=== PATIENT | male | born 1975 | race Caucasian/White ===

== ENCOUNTER 2022-11-05 13:34 | Emergency (ER) | payer MEDICAID, OTHER ==
[~2022-11-05] VITALS: Ht 162.6 cm; Wt 66.0 kg
[~2022-11-05 13:34] MED LIST: SEE LIST
[2022-11-05 13:54] VITALS: TEMP 98.6; O2SAT 99
[2022-11-05 14:30] VITALS: BP 106/72; PULSE 109; RESP 16
[2022-11-05] MEDS ORDERED: TETANUS, DIPHTHERIA, PERTUSSIS VAC/PF 0.5ML (>10YR OLD) IM ONE (14:30)
[2022-11-05] MEDS ORDERED: IBUPROFEN 600MG TABLET PO ONE (14:30)
[2022-11-05] MEDS ORDERED: BACITRACIN ZINC OINT UDPKT TOP ONE (14:30)
[2022-11-05] MEDS ORDERED: LIDOCAINE HCL/PF 1% 10 MG/ML 5ML VIAL INFIL ONE (14:30)
[2022-11-05] MEDS ORDERED: BO1 TP (15:18)
== END 2022-11-05 16:09 | disposition home or self-care (01) ==
LOC: ER 13:34
DX: S01.112A Laceration without foreign body of left eyelid and periocular area, initial encounter (principal); W18.39XA Other fall on same level, initial encounter; Y93.89 Activity, other specified; Y92.89 Other specified places as the place of occurrence of the external cause; Y99.8 Other external cause status
CPT/HCPCS: 99283; 90715; 12011; 90471; J3490

== ENCOUNTER → 2022-11-10 | Emergency (ER) | payer OTHER ==
[~2022-11-10] VITALS: Ht 162.6 cm; Wt 77.0 kg
[~2022-11-10] MED LIST changes: +BO1 TP
[2022-11-10 12:19] VITALS: BP 114/79; PULSE 99; RESP 16; TEMP 98.6; O2SAT 100
== END ==
LOC: ER 12:14
DX: Z48.02 Encounter for removal of sutures (principal)
CPT/HCPCS: 99281